=== PATIENT | female | born 1965 | race Caucasian/White ===

== ENCOUNTER → 2017-05-11 | Outpatient (CLI) | payer BC, MEDICAID ==
[2016-05-15 04:04] VITALS: BP 138/95
[~2017-05-11] MED LIST: BACL10TA PO; CYCL5TAB PO; DILT120C2 PO; DILT240C2 PO; GABA-585 PO; IBUPROFEN 600 MG TABLET. PO ONE; VENL37.5 PO; ZOLPIDEM 5 MG TABLET. ONE
== END | disposition home or self-care (01) ==
LOC: RT 19:04
PROVIDERS: ATTEND Family Medicine
DX: R53.83 Other fatigue (principal); Z68.41 Body mass index [BMI] 40.0-44.9, adult; G47.33 Obstructive sleep apnea (adult) (pediatric)
CPT/HCPCS: 95810

== ENCOUNTER → 2017-06-15 | Outpatient (CLI) | payer BC, MEDICAID ==
[2016-05-15 04:04] VITALS: BP 138/95
[~2017-06-15] MED LIST changes: -IBUPROFEN 600 MG TABLET. PO ONE; -ZOLPIDEM 5 MG TABLET. ONE; +ZOLPIDEM 5 MG TABLET. PO ONE
== END | disposition home or self-care (01) ==
LOC: RT 18:34
PROVIDERS: ATTEND Family Medicine
DX: G47.33 Obstructive sleep apnea (adult) (pediatric) (principal)
CPT/HCPCS: 95811

== ENCOUNTER → 2017-08-22 | Outpatient (CLI) | payer BC, MEDICAID ==
[2016-05-15 04:04] VITALS: BP 138/95
[~2017-08-22] MED LIST changes: +CEFP200T PO; +HYDR-971 PO; +ONDA4TAB10 SL; -ZOLPIDEM 5 MG TABLET. PO ONE
--- NOTE | 2017-08-22 09:56 | RAD ---
INDICATION: Abdominal pain. COMPARISON: None. TECHNIQUE: Grayscale and color ultrasound images obtained through the abdomen. FINDINGS: Aorta/IVC: Partially visualized without gross aneurysm. Pancreas: Difficult visualization secondary to overlying structures obscuring. Liver: Echogenic Gallbladder: Gallstones are visualized. Common Bile Duct: Not dilated. Right Kidney: No hydronephrosis. Left Kidney: No hydronephrosis. Spleen: Unremarkable. IMPRESSION: Liver is echogenic, nonspecific but can be seen with fatty infiltration. Multiple gallstones are identified including a suspected stone in the gallbladder neck region.
== END | disposition home or self-care (01) ==
LOC: US 09:03
PROVIDERS: ATTEND Family Medicine
DX: K76.0 Fatty (change of) liver, not elsewhere classified (principal)
CPT/HCPCS: 76700

== ENCOUNTER 2020-08-06 17:38 | Emergency (ER) | payer MEDICARE, MEDICAID ==
[~2020-08-06] VITALS: Ht 172.7 cm; Wt 141.0 kg
[~2020-08-06 17:38] MED LIST changes: +HYDR-3164 PO; -HYDR-971 PO
--- NOTE | 2020-08-06 19:23 | RAD ---
Exam: Right wrist 3 views INDICATION: Right wrist and thumb pain after fall TECHNIQUE: Frontal, lateral and oblique views of the right wrist Comparisons: None FINDINGS: Bone mineralization is normal. 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 Joint spaces are otherwise well-maintained. Soft tissues are unremarkable. IMPRESSION: Postsurgical changes of trapezium removal. No acute fracture identified. Electronically signed by: Venecia Ventura MD (08/06/2020 7:20 PM) NICHOLAS
--- NOTE | 2020-08-06 19:24 | RAD ---
Three-view left ankle and two-view left tibia-fibula dated 08/06/2020. No comparison available. Clinical data indication: Pain after injury. FINDINGS: 3 views of left ankle show normal bony alignment. No displaced fracture. Mild hypertrophic change of the tibiotalar joint and joints of mid foot hindfoot. Talar dome is intact. Mild soft tissue swelling. 2 views left tibia fibula show evidence of prior total knee arthroplasty. Femoral and tibial components are intact. No periprosthetic fracture or malalignment. There is mild soft tissue swelling. IMPRESSION: Soft tissue swelling with no apparent underlying acute bony abnormality. Electronically signed by: Addy Fleming MD (08/06/2020 7:21 PM) TANI
--- NOTE | 2020-08-06 19:25 | RAD ---
Three-view right thumb dated 08/06/2020. No comparison available. Clinical data indication: Pain after injury. FINDINGS: 3 views of the right thumb show normal bony alignment. No displaced fracture. There is mild to moderate degenerative change of the DIP joint. Evidence of prior surgical resection of the trapezium with degenerative changes of the base of the first metacarpal. Osseous structures otherwise unremarkable. IMPRESSION: 1. No acute bony abnormality. 2. Degenerative and postsurgical changes as described. Electronically signed by: Addy Fleming MD (08/06/2020 7:23 PM) TANI
--- NOTE | 2020-08-06 19:39 | PHYS DOC ---
Past Medical History Past Medical History: Arrhythmia, Diabetes-Type II, High Cholesterol, Hyp ertension, Other Additional Past Medical Histor: borderline DM, Hep C Past Surgical History: No Surgical History Additional Past Surgical Histo: R ankle fusion, L breast biopsy Smoking Status: Never Smoker Alcohol Use: None Drug Use: None General Adult EDM: Chief Complaint: MECHANICAL FALL HPI: HPI: Patient is a 55 year old female who presents to the emergency department with complaints of right wrist, right thumb, and left lower leg pain after tripping on the doorstep and falling 3 days prior to arrival. She denies hitting her head or loss of consciousness. Patient states she has been able to ambulate but has increased pain with weightbearing in her left lower leg. She reports pain at the base of her right thumb and in her right wrist also after the fall. She denies any numbness, tingling, or weakness of the affected extremities. She currently rates pain a 5 out of 10 on the pain scale, she has been taking Tylenol at home with little relief. Review of Systems: Review of Systems: Complete ROS is negative unless otherwise stated in the HPI. Heart Score: Risk Factors: Risk Factors: DM, Current or recent (<one month) smoker, HTN, HLP, family history of CAD, obesity. Risk Scores: Score 0 - 3: 2.5% MACE over next 6 weeks - Discharge Home Score 4 - 6: 20.3% MACE over next 6 weeks - Admit for Clinical Observation Score 7 - 10: 72.7% MACE over next 6 weeks - Early Invasive Strategies Allergies: Allergies: Allergies Coded Allergies Type Severity Reaction Last Updated Verified Penicillins Allergy Intermediate Rash 03/01/14 Yes codeine Allergy Intermediate Rash 03/01/14 Yes Physical Exam: PE: Constitutional: Well developed, well nourished, no acute distress, non-toxic appearance, morbidly obese [] HENT: Normocephalic, atraumatic, bilateral external ears normal, nose normal. [] Eyes: PERRLA, EOMI, conjunctiva normal, no discharge. [] Neck: Normal range of motion, no stridor. [] Cardiovascular:Heart rate regular rhythm Lungs & Thorax: Respirations even and unlabored, no retractions, no respiratory distress Skin: Warm, dry, no erythema, no rash; dark purple bruising noted to left lower extremity. [] Extremities: Lower left extremity: Lateral tenderness to palpation without obvious deformity, no crepitus, 1+ edema, sensation intact, no cyanosis, ROM intact; right wrist: Tenderness to palpation at the base of the right thumb and over the medial right wrist, no obvious deformity, no crepitus, sensation intact, ROM intact, no edema, no cyanosis Neurologic: Alert and oriented X 3, no focal deficits noted. [] Psychologic: Affect normal, judgement normal, mood normal. [] Current Patient Data: Vital Signs: Vital Signs Date Time Temp Pulse Resp B/P (MAP) Pulse Ox O2 Delivery O2 Flow Rate FiO2 08/06/20 18:10 99.8 102 16 184/93 (123) 96 Room Air 99.8 EKG: EKG: [] Radiology/Procedures: Radiology/Procedures: PROCEDURE: ANKLE LEFT 3V Three-view left ankle and two-view left tibia-fibula dated 08/06/2020. No comparison available. Clinical data indication: Pain after injury. FINDINGS: 3 views of left ankle show normal bony alignment. No displaced fracture. Mild hypertrophic change of the tibiotalar joint and joints of mid foot hindfoot. Talar dome is intact. Mild soft tissue swelling. 2 views left tibia fibula show evidence of prior total knee arthroplasty. Femoral and tibial components are intact. No periprosthetic fracture or malalignment. There is mild soft tissue swelling. IMPRESSION: Soft tissue swelling with no apparent underlying acute bony abnormality. Electronically signed by: Addy Fleming MD (08/06/2020 7:21 PM) [facility] PROCEDURE: FINGER(S) RIGHT Three-view right thumb dated 08/06/2020. No comparison available. Clinical data indication: Pain after injury. FINDINGS: 3 views of the right thumb show normal bony alignment. No displaced fracture. There is mild to moderate degenerative change of the DIP joint. Evidence of prior surgical resection of the trapezium with degenerative changes of the base of the first metacarpal. Osseous structures otherwise unremarkable. IMPRESSION: 1. No acute bony abnormality. 2. Degenerative and postsurgical changes as described. PROCEDURE: TIBIA FIBULA LEFT Three-view left ankle and two-view left tibia-fibula dated 08/06/2020. No comparison available. Clinical data indication: Pain after injury. FINDINGS: 3 views of left ankle show normal bony alignment. No displaced fracture. Mild hypertrophic change of the tibiotalar joint and joints of mid foot hindfoot. Talar dome is intact. Mild soft tissue swelling. 2 views left tibia fibula show evidence of prior total knee arthroplasty. Femoral and tibial components are intact. No periprosthetic fracture or malalignment. There is mild soft tissue swelling. IMPRESSION: Soft tissue swelling with no apparent underlying acute bony abnormality. PROCEDURE: WRIST 3V RIGHT Exam: Right wrist 3 views INDICATION: Right wrist and thumb pain after fall TECHNIQUE: Frontal, lateral and oblique views of the right wrist Comparisons: None FINDINGS: Bone mineralization is normal. 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 Joint spaces are otherwise well-maintained. Soft tissues are unremarkable. IMPRESSION: Postsurgical changes of trapezium removal. No acute fracture identified. [] Course & Med Decision Making: Course & Med Decision Making Pertinent Labs and Imaging studies reviewed. (See chart for details) [] Dragon Disclaimer: Dragon Disclaimer: This electronic medical record was generated, in whole or in part, using a voice recognition dictation system. Departure Departure Impression: Primary Impression: Contusion of left lower leg, initial encounter Additional Impressions: Acute pain of right wrist Pain of right thumb Disposition: 01 HOME, SELF-CARE Condition: STABLE Referrals: UNKNOWN PCP NAME (PCP) WILLA BYRD MD Patient Instructions: Contusion, [id number], Wrist Pain, [id number] Additional Instructions: You can take Tylenol or ibuprofen as needed for pain. Recommend application of ice, elevation, and rest of affected extremities. Wear the Michael wrap that was applied as needed for comfort. Follow-up with your primary care or Dr. Byrd in 1 to 2 days. Return to the ER if your symptoms worsen. LEIDY ADAMS APRN Aug 06, 2020 19:39
[2020-08-06 19:47] VITALS: BP 176/98
== END 2020-08-06 19:52 | disposition home or self-care (01) ==
LOC: ER 17:38
DX: S80.12XA Contusion of left lower leg, initial encounter (principal); M79.644 Pain in right finger(s); M25.531 Pain in right wrist; E11.9 Type 2 diabetes mellitus without complications; E78.00 Pure hypercholesterolemia, unspecified; I10 Essential (primary) hypertension; Z88.0 Allergy status to penicillin; Z88.5 Allergy status to narcotic agent; W01.0XXA Fall on same level from slipping, tripping and stumbling without subsequent striking against object, initial encounter; Y93.89 Activity, other specified; Y92.89 Other specified places as the place of occurrence of the external cause; Y99.8 Other external cause status
CPT/HCPCS: 73110; 73140; 73590; 73610; 99284